=== PATIENT | male | born 1980 | race Caucasian/White ===

== ENCOUNTER 2019-01-20 22:40 | Emergency (ER) | payer BC ==
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
[2019-01-21 01:16] VITALS: TEMP 98.4
[2019-01-21 01:18] VITALS: BP 121/83; O2SAT 96
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
== END 2019-01-20 23:48 | disposition home or self-care (01) ==
LOC: ER 22:40
DX: S46.011A Strain of muscle(s) and tendon(s) of the rotator cuff of right shoulder, initial encounter (principal); V28.4XXA Motorcycle driver injured in noncollision transport accident in traffic accident, initial encounter; Y93.89 Activity, other specified; Y92.410 Unspecified street and highway as the place of occurrence of the external cause; F17.210 Nicotine dependence, cigarettes, uncomplicated
CPT/HCPCS: 99283

== ENCOUNTER 2023-01-20 13:10 | Emergency (ER) | payer BC, SELFPAY ==
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
--- NOTE | 2023-01-20 13:55 | RAD REPORT ---
EXAM DESCRIPTION: RAD - Shoulder Right 2 View - 01/20/2023 1:37 pm CLINICAL HISTORY: PAIN COMPARISON: Shoulder Right 2 View dated 01/20/2019 FINDINGS: Moderate acromial spur. No acute or fracture dislocation.
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
[2023-01-20] MEDS ORDERED: ONDANSETRON 4 MG/2 ML VIAL ONE (15:00)
[2023-01-20] MEDS ORDERED: FENTANYL CITR 100 MCG/2 ML ONE (15:00)
[2023-01-20] MEDS ORDERED: NA CHLORIDE 0.9% 100 ML ONE (15:00)
[2023-01-20] MEDS ORDERED: NA CHLORIDE 0.9% 1,000 ML ONE (15:01)
[2023-01-20] MEDS ORDERED: CEFAZOLIN SODIUM 2 GM/VIAL ONE (15:01)
[2023-01-20 15:05] LABS: Absolute Lymphocytes (CBC) 1.9 K/uL (0.7-4.9); Hematocrit 42.4 % (39.6-49.0); Lymphocytes % 10.2 % (15.3-44.8); MCV 90.2 fL (80-100); MPV 8.7 fL (7.6-11.3); Platelets 294 thou/uL (152-406); RBC Red Blood Cell Count 4.71 M/uL (4.33-5.43)
[2023-01-20 15:15] LABS: Potassium 3.4 mEq/L (3.5-5.1)
[2023-01-20 18:04] VITALS: TEMP 97.9; O2SAT 100
[2023-01-20 18:16] VITALS: BP 147/96
== END 2023-01-20 16:10 ==
LOC: ER 13:10
DX: S02.641A Fracture of ramus of right mandible, initial encounter for closed fracture (principal); M25.511 Pain in right shoulder
CPT/HCPCS: 36415; 70450; 70486; 76377; 80048; 85025; J2405; J3010; J7030